=== PATIENT | female | born 1945 | race Caucasian/White ===

== ENCOUNTER 2019-02-23 12:43 | Emergency (ER) | payer MEDICARE, MEDICAID ==
--- NOTE | 2019-02-23 14:26 | CT ---
[id number] CT/CT Head WO IV EXAM: CT Head WO IV CLINICAL DATA: TRAUMA COMPARISON: NO PREVIOUS SIMILAR EXAM IS AVAILABLE FOR COMPARISON. FINDINGS: There is no mass or mass effect. There is no hemorrhage or hydrocephalus. There are no extra-axial fluid collections. There are no sites of abnormal attenuation. Asymmetric aeration of the petrous pyramids is likely a normal variant IMPRESSION: NO PLAIN CT EVIDENCE OF ACUTE INTRACRANIAL PROCESS. Pa Paul MD 02/23/19 [id number] Thank you for allowing us to participate in the care of your patient.
--- NOTE | 2019-02-23 15:02 | CR ---
[id number] RAD/RAD Pelvis 1V W 2V Right Hip Exam: RAD Pelvis 1V W 2V Right Hip Clinical Data: TRAUMA COMPARISON: NO PREVIOUS SIMILAR EXAM IS AVAILABLE FINDINGS: The patient is rotated to the right. There is no obvious fracture or dislocation. A repeat study would be helpful. It is possible that there are fractures of the right superior and inferior pubic rami that are obscured because of the rotation.: IMPRESSION: QUESTION OF RIGHT SIDE PUBIC RAMI FRACTURES. CONSIDER FURTHER EXAMS. Pa Paul MD 02/23/19 [id number] Thank you for allowing us to participate in the care of your patient.
[2019-02-23 15:07] LABS: ANION GAP 14.5 mmol/L (10-20)
--- NOTE | 2019-02-23 15:26 | CR ---
[id number] RAD/RAD Chest PA or AP 1V EXAM: SINGLE VIEW CHEST. INDICATION: TRAUMA. CHANGE IN MENTAL STATUS COMPARISON: NO PREVIOUS SIMILAR EXAM IS AVAILABLE FINDINGS: The lungs are clear. There is no pneumothorax. The cardiomediastinal contour is enlarged. IMPRESSION: NO ACUTE PROCESS. Pa Paul MD 02/23/19 [id number] Thank you for allowing us to participate in the care of your patient.
[2019-02-23] MEDS ORDERED: Acetaminophen/HYDROcodone 325-5 MG Tab PO ONE (15:35)
--- NOTE | 2019-02-23 17:42 | EDM.PDOC ---
ED HPI GENERAL MEDICAL PROBLEM - General Chief Complaint: Head Injury Stated Complaint: ER VISIT Time Seen by Provider: 02/23/19 12:50 Source of Information: Reports: Patient History Limitations: Reports: No Limitations - History of Present Illness INITIAL COMMENTS - FREE TEXT/NARRATIVE: Pt. presents to ER with numerous complaints. She states that she recently was placed in the [facility] and has been falling recently. She has fallen twice in less than 24 hours and struck her head both times. Staff at the [facility] states that there was a LOC but patient denies this. Pt. primary complaints are that of low back pain, R hip pain, buttock pain. Denies any neck pain. Pt. admits to feeling more weak recently. She states that she has been quite fatigued since her transition to [facility]. She recently was taken off of pain medications due to narcotic diverson in the household. Onset: Today Onset Date: 02/23/19 Onset Time: 12:50 Lower Back Pain Score (Numeric/FACES): 10 - Related Data Allergies Allergy/AdvReac Type Severity Reaction Status Date / Time cephalexin Allergy Cannot Verified 02/23/19 13:00 Remember Penicillins Allergy Other Verified 02/23/19 12:57 Sulfa (Sulfonamide Allergy Other Verified 02/23/19 12:58 Antibiotics) Home Meds: Home Meds Albuterol Sulfate [Albuterol Sulfate Hfa] 2 puff Q4H PRN 02/23/19 [History] Budesonide [Pulmicort] 0.5 mg IH BID 02/23/19 [History] Doxepin [SINEquan] 25 mg DAILY 02/23/19 [History] Dulaglutide [Trulicity] 1 injection ASDIRECTED 02/23/19 [History] Escitalopram [Lexapro] 20 mg DAILY 02/23/19 [History] Febuxostat [Uloric] 40 mg DAILY 02/23/19 [History] Fluticasone/Vilanterol [Breo Ellipta 200-25 Mcg INH] 1 puff DAILY 02/23/19 [ History] Furosemide 80 mg BID 02/23/19 [History] Insulin Glargine,Hum.Rec.Anlog [Toujeo Solostar] 45 unit DAILY 02/23/19 [History ] Levothyroxine [Synthroid] 50 mcg DAILY 02/23/19 [History] Lidocaine [Lidocaine 5%] 1 patch DAILY 02/23/19 [History] Metoprolol Tartrate 75 mg BID 02/23/19 [History] Omeprazole 20 mg BID 02/23/19 [History] Potassium Chloride [Klor-Con] 20 meq PO BID 02/23/19 [History] Pregabalin [Lyrica] 100 mg TID 02/23/19 [History] Umeclidinium Joes [Incruse Ellipta*] 1 puff DAILY 02/23/19 [History] metOLazone [Metolazone] 2.5 mg ASDIRECTED 02/23/19 [History] risperiDONE 1 mg DAILY 02/23/19 [History] Past Medical History HEENT History: Reports: Other (See Below) Other HEENT History: blindness R eye Cardiovascular History: Reports: Heart Failure, High Cholesterol, Hypertension Respiratory History: Reports: Asthma, COPD, Other (See Below) Other Respiratory History: acute and chronic resp failure Gastrointestinal History: Reports: PUD Genitourinary History: Reports: Renal Disease Musculoskeletal History: Reports: Back Pain, Chronic, Fibromyalgia, Other (See Below) Other Musculoskeletal History: muscle weakness Neurological History: Reports: Neuropathy, Peripheral, Other (See Below) Other Neuro History: muscle weakness Psychiatric History: Reports: Other (See Below) Other Psychiatric History: dysthymic disorder. insomnia Endocrine/Metabolic History: Reports: Diabetes, Type II, Hypothyroidism - Past Surgical History Musculoskeletal Surgical History: Reports: Other (See Below) Other Musculoskeletal Surgeries/Procedures:: intervertebral disc degeneration, lumbar region Social & Family History - Tobacco Use Smoking Status *Q: Current Status Unknown - Recreational Drug Use Recreational Drug Use: No ED ROS GENERAL - Review of Systems Review Of Systems: See Below Constitutional: Reports: Malaise, Weakness, Fatigue HEENT: Reports: No Symptoms Respiratory: Reports: No Symptoms Cardiovascular: Reports: No Symptoms Endocrine: Reports: No Symptoms GI/Abdominal: Reports: No Symptoms : Reports: No Symptoms Musculoskeletal: Reports: Leg Pain, Other (hip and pelvic pain, R side) Skin: Reports: No Symptoms Neurological: Reports: No Symptoms Psychiatric: Reports: No Symptoms Hematologic/Lymphatic: Reports: No Symptoms Immunologic: Reports: No Symptoms ED EXAM, HEAD INJURY - Physical Exam Exam: See Below Exam Limited By: No Limitations General Appearance: Alert, WD/WN, No Apparent Distress Head: Atraumatic, Normocephalic Nexus Criteria: No: Posterior, Midline Cervical Tenderness, Evidence of Intoxication, Altered Level of Consciousness, Focal Neurological Deficit, Painful Distraction Injuries Eyes: Bilateral Eye: EOMI, Normal Fundi, Normal Inspection, PERRL Ears: Normal External Exam, Normal Canal, Hearing Grossly Normal, Normal TMs Nose: Normal Inspection, Normal Mucousa, No Blood Throat/Mouth: Normal Inspection, Normal Lips, Normal Teeth, Normal Gums, Normal Oropharynx, Normal Voice, No Airway Compromise Neck: Non-Tender, Normal Alignment, Normal Inspection. No: Muscle Spasm, Paraspinous Muscle Tender Respiratory: No Respiratory Distress, Lungs Clear, Normal Breath Sounds, No Accessory Muscle Use, Chest Non-Tender Cardiovascular: Normal Peripheral Pulses, Regular Rate, Rhythm, No Edema, No Gallop, No JVD, No Rub, Systolic Murmur GI/Abdominal Exam: Normal Bowel Sounds, Soft, Non-Tender, No Organomegaly, No Distention, No Abnormal Bruit, No Mass (Female) Exam: Deferred Rectal (Female) Exam: Deferred Back Exam: Normal Inspection, Full Range of Motion Extremities: Normal Inspection, No Pedal Edema, Normal Capillary Refill, Leg Pain (pain with manipulation of R leg/hip ), Limited Range of Motion. 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 As Tested, No Motor/Sensory Deficits, Alert, Normal Mood/Affect, Oriented x 3 Skin: Normal Color, Warm/Dry - [place] Coma Score Best Eye Response ([place]): (4) Open Spontaneously Best Verbal Response (Maria): (4) Confused Conversation Best Motor Response ([place]): (6) Obeys Commands Course - Vital Signs Last Recorded V/S: Last Vital Signs Temp 36.8 C 02/23/19 12:43 Pulse 78 02/23/19 12:43 Resp 20 02/23/19 12:43 BP 131/71 02/23/19 12:43 Pulse Ox 90 L 02/23/19 12:43 - Orders/Labs/Meds Labs: Laboratory Tests 02/23/19 02/23/19 02/23/19 Range/Units 14:02 14:10 14:10 WBC 8.3 (4.0-10.0) x10^3/uL RBC 4.19 (4.00-5.50) x10^6/uL Hgb 9.8 L (12.0-16.0) g/dL Hct 31.5 L (33.0-47.0) % MCV 75.2 L (78.0-93.0) fL MCH 23.4 L (26.0-32.0) pg MCHC 31.1 L (32.0-36.0) g/dL RDW Coeff of Erasmo 22.8 H (10.0-15.0) % Plt Count 267 (130-400) x10^3/uL Neut % (Auto) 82.6 H (50.0-80.0) % Lymph % (Auto) 9.3 L (25.0-50.0) % [place] % (Auto) 7.5 (2.0-11.0) % Eos % (Auto) 0.2 (0.0-4.0) % Baso % (Auto) 0.4 (0.2-1.2) % Sodium 135 L (136-145) mmol/L Potassium 3.5 (3.5-5.1) mmol/L Chloride 94 L (98-107) mmol/L Carbon Dioxide 30 (21-32) mmol/L Anion Gap 14.5 (10-20) mmol/L BUN 31 H (7-18) mg/dL Creatinine 1.4 H (0.55-1.02) mg/dL Est Cr Clr Drug Dosing 27.01 mL/min Estimated GFR (MDRD) 37 Glucose 111 H (74-106) mg/dL Lactic Acid (0.4-2.0) mmol/L Calcium 9.8 (8.5-10.1) mg/dL Corrected Calcium 10.44 H (8.5-10.1) mg/dL Total Bilirubin 0.5 (0.2-1.0) mg/dL AST 25 (15-37) U/L ALT 22 (14-59) U/L Alkaline Phosphatase 109 (46-116) U/L C-Reactive Protein 3.1 H (<=0.9) mg/dL Total Protein 7.4 (6.4-8.2) g/dL Albumin 3.2 L (3.4-5.0) g/dL Globulin 4.2 Albumin/Globulin Ratio 0.76 Urine Color Light yellow (YELLOW) Urine Appearance Clear (CLEAR) Urine pH 6.5 (5.0-8.0) Ur Specific [place] 1.010 Urine Protein Negative (NEGATIVE) mg/dL Urine Glucose (UA) Negative (NEGATIVE) mg/dL Urine Ketones Negative (NEGATIVE) mg/dL Urine Occult Blood Trace-intact H (NEGATIVE) Urine Nitrite Negative (NEGATIVE) Urine Bilirubin Negative (NEGATIVE) Urine Urobilinogen 0.2 (0.2) EU/dL Ur Leukocyte Esterase Negative (NEGATIVE) Urine RBC 0-5 (NOT SEEN) /HPF Urine WBC 0-5 (NOT SEEN) /HPF Ur Squamous Epith Cells Rare (NEGATIVE) /HPF Urine Bacteria Not seen (NEGATIVE) /HPF Urine Mucus Not seen (NEGATIVE) /LPF 02/23/19 Range/Units 14:10 WBC (4.0-10.0) x10^3/uL RBC (4.00-5.50) x10^6/uL Hgb (12.0-16.0) g/dL Hct (33.0-47.0) % MCV (78.0-93.0) fL MCH (26.0-32.0) pg MCHC (32.0-36.0) g/dL RDW Coeff of Erasmo (10.0-15.0) % Plt Count (130-400) x10^3/uL Neut % (Auto) (50.0-80.0) % Lymph % (Auto) (25.0-50.0) % [place] % (Auto) (2.0-11.0) % Eos % (Auto) (0.0-4.0) % Baso % (Auto) (0.2-1.2) % Sodium (136-145) mmol/L Potassium (3.5-5.1) mmol/L Chloride (98-107) mmol/L Carbon Dioxide (21-32) mmol/L Anion Gap (10-20) mmol/L BUN (7-18) mg/dL Creatinine (0.55-1.02) mg/dL Est Cr Clr Drug Dosing mL/min Estimated GFR (MDRD) Glucose (74-106) mg/dL Lactic Acid 1.8 (0.4-2.0) mmol/L Calcium (8.5-10.1) mg/dL Corrected Calcium (8.5-10.1) mg/dL Total Bilirubin (0.2-1.0) mg/dL AST (15-37) U/L ALT (14-59) U/L Alkaline Phosphatase (46-116) U/L C-Reactive Protein (<=0.9) mg/dL Total Protein (6.4-8.2) g/dL Albumin (3.4-5.0) g/dL Globulin Albumin/Globulin Ratio Urine Color (YELLOW) Urine Appearance (CLEAR) Urine pH (5.0-8.0) Ur Specific [place] Urine Protein (NEGATIVE) mg/dL Urine Glucose (UA) (NEGATIVE) mg/dL Urine Ketones (NEGATIVE) mg/dL Urine Occult Blood (NEGATIVE) Urine Nitrite (NEGATIVE) Urine Bilirubin (NEGATIVE) Urine Urobilinogen (0.2) EU/dL Ur Leukocyte Esterase (NEGATIVE) Urine RBC (NOT SEEN) /HPF Urine WBC (NOT SEEN) /HPF Ur Squamous Epith Cells (NEGATIVE) /HPF Urine Bacteria (NEGATIVE) /HPF Urine Mucus (NEGATIVE) /LPF Meds: Medications Discontinued Medications Generic Name Dose Route Start Last Admin Trade Name Freq PRN Reason Stop Dose Admin Hydrocodone Bitart/Acetaminophen 1 tab 02/23/19 15:35 02/23/19 15:43 [place] 325-5 Mg PO 02/23/19 15:36 1 tab ONETIME ONE Administration - Radiology Interpretation Free Text/Narrative:: CT brain is negative. Chest x-ray is negative. Questionable R pubic rami fracture. Departure - Departure Time of Disposition: 15:48 Disposition: DC/Tfer to [facility] Clinical Impression: Concussion injury of brain, Pubic ramus fracture - Discharge Information Referrals: Karla Bucio DO [Primary Care Provider] - Forms: ED Department Discharge Additional Instructions: Non-displaced pubic rami fracture. Stop tramadol. Start [place] 5/325mg every 6 hour as needed for pain. Follow-up in clinic in 10-14 days for recheck. - Assessment/Plan Plan: Non-displaced pubic rami fracture. Stop tramadol. Start [place] 5/325mg every 6 hour as needed for pain. Follow-up in clinic in 10-14 days for recheck.
== END 2019-02-23 15:48 ==
LOC: VM.ED 12:43
DX: S06.0X9A Concussion with loss of consciousness of unspecified duration, initial encounter (principal); S32.591A Other specified fracture of right pubis, initial encounter for closed fracture; R40.2412 Glasgow coma scale score 13-15, at arrival to emergency department; I11.0 Hypertensive heart disease with heart failure; I50.9 Heart failure, unspecified; J44.9 Chronic obstructive pulmonary disease, unspecified; E11.42 Type 2 diabetes mellitus with diabetic polyneuropathy; E03.9 Hypothyroidism, unspecified; Z88.0 Allergy status to penicillin; Z88.1 Allergy status to other antibiotic agents; Z88.2 Allergy status to sulfonamides; Z79.899 Other long term (current) drug therapy; Z79.4 Long term (current) use of insulin; W01.198A Fall on same level from slipping, tripping and stumbling with subsequent striking against other object, initial encounter; Y92.121 Bathroom in nursing home as the place of occurrence of the external cause
CPT/HCPCS: 36415; 70450; 71045; 80053; 81001; 83605; 85025; 86140; 99283-GF; 99285-25; A9270-GY